=== PATIENT | female | born 1965 | race African-American/Black ===

== ENCOUNTER 2017-04-02 06:41 | Emergency (ER) | payer OTHER ==
[~2017-04-02] VITALS: Ht 170.2 cm; Wt 70.3 kg
[~2017-04-02 06:41] MED LIST: BENZ-20 PO; HYDR25TA4 PO; LAMO25TA PO; LISI10TA5 PO; P EP PO; PSEU-231 PO; TRIA10.8 NS
--- NOTE | 2017-04-02 07:30 | NUR ---
pt to room. pt c/o ROJO for two days with left eye "twitching". Denies N/V, denies blurred vision, denies photosensitivity. Pt alert and oriented x 4. Sts ROJO is a 7-06/26. Pt resting in position of comfort for self. MD at bedside.
[2017-04-02] MEDS ORDERED: IV NORMAL SALINE 1000 ML BAG IV ONE (07:45)
[2017-04-02 08:00] LABS: EOSINOPHILS # (AUTO) 0.1 K/uL (0.0-0.7); EOSINOPHILS % (AUTO) 2.8 % (0.0-7.0); HEMOGLOBIN 13.8 G/DL (12.0-16.0); LYMPHOCYTES % (AUTO) 27.7 % (20.5-51.5); MEAN CORPUSCULAR HEMOGLOBIN 30.5 UUG (27.0-31.0); MEAN CORPUSCULAR HGB CONC 34 g/dL (32.0-37.0); MEAN CORPUSCULAR VOLUME 88.5 FL (81.0-99.0); MONOCYTES # (AUTO) 0.3 K/UL (0.1-1.30); MONOCYTES % (AUTO) 8.4 % (0.0-11.0); NEUTROPHILS # (AUTO) 2.4 K/UL (1.8-8.9); NEUTROPHILS % (AUTO) 60.1 % (38.5-71.5); PLATELET COUNT (AUTO) 182 K/UL (150-450); RED BLOOD CELL COUNT(AUTO) 4.53 MIL/UL (4.2-5.4); RED CELL DISTRIBUTION WIDTH 12.6 % (11.5-14.5); WHITE BLOOD COUNT (AUTO) 3.8 K/UL (4.0-11.2)
[2017-04-02 08:06] LABS: *URINE HCG, QUAL NEGATIVE (NEGATIVE)
[2017-04-02 08:08] LABS: CALCIUM 9.4 mg/dL (8.5-10.1); CREATININE 1.1 mg/dL (0.6-1.3); POTASSIUM 3.5 mmol/L (3.5-5.1)
--- NOTE | 2017-04-02 08:13 | NUR ---
Pt returned from CT via w/c. Pt resting in position of comfort for self. No complaints at this time. Sts pain is tolerable.
[2017-04-02] MEDS ORDERED: LISINOPRIL 10 MG TABLET PO ONE (08:30)
[2017-04-02] MEDS ORDERED: HYDROCHLOROTHIAZIDE 25 MG TABLET PO ONE (08:30)
[2017-04-02] MEDS ORDERED: LISINOPRIL 10 MG TABLET ONE (08:37)
[2017-04-02] MEDS ORDERED: HYDROCHLOROTHIAZIDE 25 MG TABLET ONE (08:37)
[2017-04-02 09:30] VITALS: BP 164/109
[2017-04-02] MEDS ORDERED: CLONIDINE HCL 0.1 MG TABLET ONE (09:49)
[2017-04-02] MEDS ORDERED: LIDOCAINE HCL 1% 20 ML VIAL ONE (10:03)
[2017-04-02] MEDS ORDERED: CLONIDINE HCL 0.1 MG TABLET PO ONE (10:15)
--- NOTE | 2017-04-02 10:18 | NUR ---
Consent signed, lumbar puncture completed. Procedure complete, no obvious signs of distress. Pt resting in position of comfort for self.
[2017-04-02 10:40] LABS: CSF GLUCOSE 58 mg/dL (40-70); CSF PROTEIN 34 mg/dL (15-45)
--- NOTE | 2017-04-02 10:48 | NUR ---
pt ambulated to and from br with steady gait. Pt sts pain is a 4/10 and is tolerable at this time. Pt resting in position of comfort for self.
[2017-04-02 10:57] LABS: CSF APPEARANCE CLEAR (CLEAR); CSF COLOR COLORLESS (COLORLESS); CSF TUBE NUMBER 4; CSF WHITE BLOOD CELL COUNT 0 /cumm (0-5)
--- NOTE | 2017-04-02 11:17 | NUR ---
IV removed. Catheter intact and site benign. Pressure and 4x4 gauze applied to site. No bleeding noted.
--- NOTE | 2017-04-02 11:18 | NUR ---
Patient discharged to home in stable conditon. Written and verbal after care instructions given. Patient verbalizes understanding of instructions. Stressed follow up with pmd or return to ER for worsening s/s.
== END 2017-04-02 11:20 | disposition home or self-care (01) ==
LOC: ER 06:49
DX: R51 Headache (principal); I10 Essential (primary) hypertension; D64.9 Anemia, unspecified; Z90.710 Acquired absence of both cervix and uterus
CPT/HCPCS: 36415; 70450; 84157; 84703; 85025; 85610; 87205; 89051; A4663; J3490; J7030

== ENCOUNTER 2018-01-11 16:02 | Emergency (ER) | payer BC, OTHER ==
[~2018-01-11] VITALS: Ht 170.2 cm; Wt 74.8 kg
[~2018-01-11 16:02] MED LIST changes: -BENZ-20 PO; +BENZ-38 PO
[2018-01-11 17:15] LABS: BASOPHILS % (AUTO) 0.7 % (0.0-2.0); EOSINOPHILS # (AUTO) 0.1 K/uL (0.0-0.7); EOSINOPHILS % (AUTO) 1.1 % (0.0-7.0); HEMATOCRIT 37.8 % (31.2-41.9); HEMOGLOBIN 12.6 g/dL (10.9-14.3); LYMPHOCYTES # (AUTO) 1.1 K/uL (20.0-40.0); LYMPHOCYTES % (AUTO) 23.8 % (20.5-51.5); MEAN CORPUSCULAR HEMOGLOBIN 29.7 uug (24.7-32.8); MEAN CORPUSCULAR HGB CONC 33 g/dL (32.3-35.6); MEAN CORPUSCULAR VOLUME 89.4 fL (75.5-95.3); MONOCYTES # (AUTO) 0.4 K/uL (2.0-10.0); MONOCYTES % (AUTO) 7.6 % (0.0-11.0); NEUTROPHILS # (AUTO) 3.2 K/uL (1.8-8.9); NEUTROPHILS % (AUTO) 66.8 % (38.5-71.5); PLATELET COUNT (AUTO) 201 K/uL (179-408); RED BLOOD CELL COUNT(AUTO) 4.24 MIL/uL (3.63-4.92); WHITE BLOOD COUNT (AUTO) 4.8 K/uL (3.8-11.8)
--- NOTE | 2018-01-11 17:20 | NUR ---
Pt c/o feeling palpitations and some dizziness since late afternoon. Pt denies SOB, n/v, no other complaints, no distress noted.
[2018-01-11 17:26] LABS: POTASSIUM 3.4 mmol/L (3.5-5.1)
[2018-01-11 17:38] LABS: BILIRUBIN,DIRECT 0.1 mg/dL (0.0-0.2); BILIRUBIN,TOTAL 0.3 mg/dL (0.2-1.0); TOTAL PROTEIN, SERUM 7.9 g/dL (6.4-8.2)
[2018-01-11] MEDS ORDERED: POTASSIUM BICARBONATE/CIT AC 25 MEQ TABLET.EFF ONE (17:49)
[2018-01-11] MEDS: POTASSIUM BICARBONATE/CIT AC 25 MEQ TABLET.EFF PO ONE (17:52)
[2018-01-11] MEDS ORDERED: ASPIRIN 325 MG TABLET ONE (18:32)
[2018-01-11] MEDS ORDERED: MAG HYDROX/AL HYDROX/SIMETH 30 ML LIQUID UDC ONE (18:32)
[2018-01-11] MEDS: ASPIRIN 325 MG TABLET PO ONE (18:37)
[2018-01-11] MEDS: MAG HYDROX/AL HYDROX/SIMETH 30 ML LIQUID UDC PO ONE (18:37)
--- NOTE | 2018-01-11 19:08 | NUR ---
Report taken from SAMANTHA Flores. Assuming Pt care at this time.
--- NOTE | 2018-01-11 20:40 | NUR ---
Patient discharged to home in stable conditon. Written and verbal after care instructions given. Patient verbalizes understanding of instructions. Pt ambulated from ED w/ steady gait. Denies CP at this time. Pt took all personal belongings.
[2018-01-11 20:41] VITALS: BP 148/90
== END 2018-01-11 20:42 | disposition home or self-care (01) ==
LOC: ER 16:04
DX: R07.89 Other chest pain (principal); Z79.899 Other long term (current) drug therapy; Z90.710 Acquired absence of both cervix and uterus
CPT/HCPCS: 36415; 71045; 80048; 80076; 83880; 84443; 84484 ×2; 85025; 85379; 85730; 93005 ×2; 99285; A4663; 70030-TC

== ENCOUNTER 2019-09-15 19:54 | Emergency (ER) | payer BC, OTHER ==
[~2019-09-15] VITALS: Ht 170.2 cm; Wt 75.7 kg
[~2019-09-15 19:54] MED LIST changes: -LAMO25TA PO; +LAMO25TA10 PO
--- NOTE | 2019-09-15 20:05 | NUR ---
DR. TURNER AT BEDSIDE FOR MSE.
[2019-09-15 20:25] LABS: BASOPHILS % (AUTO) 0.4 % (0.0-2.0); EOSINOPHILS # (AUTO) 0.1 K/uL (0.0-0.7); EOSINOPHILS % (AUTO) 1.3 % (0.0-7.0); HEMATOCRIT 36.8 % (31.2-41.9); HEMOGLOBIN 11.8 g/dL (10.9-14.3); LYMPHOCYTES # (AUTO) 1.2 K/uL (20.0-40.0); LYMPHOCYTES % (AUTO) 29.3 % (20.5-51.5); MEAN CORPUSCULAR HEMOGLOBIN 28.5 uug (24.7-32.8); MEAN CORPUSCULAR HGB CONC 32 g/dL (32.3-35.6); MEAN CORPUSCULAR VOLUME 88.5 fL (75.5-95.3); MONOCYTES # (AUTO) 0.3 K/uL (2.0-10.0); MONOCYTES % (AUTO) 7.4 % (0.0-11.0); NEUTROPHILS # (AUTO) 2.6 K/uL (1.8-8.9); NEUTROPHILS % (AUTO) 61.6 % (38.5-71.5); PLATELET COUNT (AUTO) 219 K/uL (179-408); RED BLOOD CELL COUNT(AUTO) 4.16 MIL/uL (3.63-4.92); WHITE BLOOD COUNT (AUTO) 4.2 K/uL (3.8-11.8)
[2019-09-15 20:34] LABS: CREATININE 0.8 mg/dL (0.6-1.3); POTASSIUM 4.4 mmol/L (3.5-5.1)
[2019-09-15 20:39] LABS: BILIRUBIN,DIRECT 0.1 mg/dL (0.0-0.2); BILIRUBIN,TOTAL 0.3 mg/dL (0.2-1.0); TOTAL PROTEIN, SERUM 7.3 g/dL (6.4-8.2)
[2019-09-15 20:58] VITALS: BP 138/79
--- NOTE | 2019-09-15 20:58 | NUR ---
Patient discharged to home in stable conditon. Written and verbal after care instructions given. Patient verbalizes understanding of instructions. PATIENT LEFT WITH STABLE GAIT.
== END 2019-09-15 20:59 | disposition home or self-care (01) ==
LOC: ER 19:55
DX: I10 Essential (primary) hypertension (principal); R20.2 Paresthesia of skin; Z90.710 Acquired absence of both cervix and uterus; Z79.899 Other long term (current) drug therapy
CPT/HCPCS: 36415; 70030-TC; 85025; 93005; A4663

== ENCOUNTER 2020-11-24 14:47 | Emergency (ER) | payer BC, OTHER ==
[~2020-11-24] VITALS: Ht 170.2 cm; Wt 71.2 kg
[~2020-11-24 14:47] MED LIST changes: -PSEU-231 PO; +[UNRECOGNIZED DRUG - CODE] PO
--- NOTE | 2020-11-24 16:18 | NUR ---
Patient discharged to home in stable condition. Written and verbal after care instructions given. Patient verbalizes understanding of instructions. Stressed follow up or return to ER for worsening s/s.
== END 2020-11-24 16:19 | disposition home or self-care (01) ==
LOC: ER 14:47
DX: M47.22 Other spondylosis with radiculopathy, cervical region (principal)
CPT/HCPCS: 70450; 72125; A4663

== ENCOUNTER 2022-10-05 18:52 | Emergency (ER) | payer BC ==
[~2022-10-05] VITALS: Ht 170.2 cm; Wt 65.8 kg
[~2022-10-05 18:52] MED LIST changes: +LISI10TA29 PO; -LISI10TA5 PO
[2022-10-05 19:50] LABS: HEMATOCRIT 35.4 % (31.2-41.9); MEAN CORPUSCULAR HEMOGLOBIN 29.3 uug (24.7-32.8); MEAN CORPUSCULAR VOLUME 90.8 fL (75.5-95.3); PLATELET COUNT (AUTO) 236 K/uL (179-408)
[2022-10-05 19:58] LABS: CARBON DIOXIDE 29 mmol/L (21-32); CHLORIDE 103 mmol/L (98-107); CREATININE 0.9 mg/dL (0.6-1.3); GLUCOSE 93 mg/dL (74-106); POTASSIUM 3.6 mmol/L (3.5-5.1); UREA NITROGEN, BLOOD 18 mg/dL (7-18)
[2022-10-05 21:44] VITALS: BP 112/70
== END 2022-10-05 21:45 | disposition home or self-care (01) ==
LOC: ER 18:55
DX: R06.00 Dyspnea, unspecified (principal); R00.2 Palpitations; R94.31 Abnormal electrocardiogram [ECG] [EKG]; Z86.711 Personal history of pulmonary embolism; Z86.718 Personal history of other venous thrombosis and embolism; Z90.710 Acquired absence of both cervix and uterus; I10 Essential (primary) hypertension; Z95.828 Presence of other vascular implants and grafts
CPT/HCPCS: 36415; 71045; 84484; 85025; 93005; A4663

== ENCOUNTER 2022-11-11 17:02 | Emergency (ER) | payer BC ==
[~2022-11-11] VITALS: Ht 170.2 cm; Wt 68.0 kg
[2022-11-11] MEDS ORDERED: HYDR-3980 PO (19:14)
[2022-11-11 19:26] VITALS: BP 120/78
== END 2022-11-11 19:27 | disposition home or self-care (01) ==
LOC: ER 17:05
DX: M94.0 Chondrocostal junction syndrome [Tietze] (principal); Z86.711 Personal history of pulmonary embolism; Z90.710 Acquired absence of both cervix and uterus
CPT/HCPCS: 71045; A4663